=== PATIENT | male | born 1970 | race Caucasian/White ===

== ENCOUNTER 2020-12-13 14:04 | Emergency (ER) | payer OTHER, SELFPAY ==
--- NOTE | ~2020-12-13 | XR_ITS ---
EXAMINATION: XR hand LT min 3V INDICATION: Left hand pain, nail through hand TECHNIQUE: Four views of the right hand are obtained. COMPARISON: None available FINDINGS: There is a nail in the soft tissues of the hand medial to the fifth metacarpal. Soft tissue swelling surrounds the nail. The osseous structures are intact. Bone alignment is normal. 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 IMPRESSION: 1. Nail in the soft tissues of the hand medial to the fifth metacarpal without associated osseous abn ormality. Reviewed, dictated and finalized at location A. IMPRESSION: 1. Nail in the soft tissues of the hand medial to the fifth metacarpal without associated osseous abnormality.
[2020-12-13 14:20] VITALS: BP 141/95; PULSE 87; RESP 18; TEMP 37.1; O2SAT 99
--- NOTE | 2020-12-13 15:41 | ED.WOUNDLAC ---
HPI - Wound/Laceration General Chief Complaint: Wound/Laceration Stated Complaint: nail to hand Time Seen by Provider: 12/13/20 15:14 Source: patient Mode of arrival: ambulatory Limitations: no limitations History of Present Illness HPI narrative: This is a 50-year-old male that presents emergency department for nail stuck in his left hand. Reports he accidentally shot himself in the hand with a nail gun. He is unsure if he is up-to-date on tetanus. Denies decreased range of motion or numbness. Related Data Allergies Allergy/AdvReac Type Severity Reaction Status Date / Time No Known Allergies Allergy Verified 12/13/20 14:34 Review of Systems Review of Systems: CONSTITUTIONAL: Denies fever SKIN: Reports foreign body hand MUSCULOSKELETAL: Denies joint pain, or myalgia. NEUROLOGIC: Denies numbness All systems reviewed & are unremarkable except as noted in HPI and below PMFSH Past Medical History Medical History (Updated 12/13/20 @ 16:19 by Irene Garcia PA-C) No active medical problems Social History Social History (Updated 12/13/20 @ 15:42 by Irene Garcia PA-C) Smoking status: Never smoker Exam Narrative: GENERAL: Well-appearing, well-nourished, and in no acute distress. HEAD: Normocephalic, atraumatic. EYES: EOMI. EXTREMITIES: Normal range of motion. No edema. Left hand with nail imbedded in the soft tissue just lateral to the 5th metacarpal. Normal radial pulses. Normal sensation SKIN: Warm, dry, no rash. NEURO: No focal deficits. Alert and oriented x3. PSYCH: Normal mood and affect Course Vital Signs Vital signs: Vital Signs Temperature 98.7 F 12/13/20 14:20 Pulse Rate 87 12/13/20 14:20 Respiratory Rate 18 12/13/20 14:20 Blood Pressure 141/95 H 12/13/20 14:20 Pulse Oximetry 99 12/13/20 14:20 Temperature 98.7 F 12/13/20 14:20 Pulse Rate 87 12/13/20 14:20 Respiratory Rate 18 12/13/20 14:20 Blood Pressure 141/95 H 12/13/20 14:20 Pulse Oximetry 99 12/13/20 14:20 Procedures Foreign Body Removal Foreign Body #1: Foreign Body Removal Date: 12/13/20 Foreign Body Removal Time: 16:15 Site: hand Description of foreign body: other (Nail) Sedation/Analgesia: other (1% lidocaine with epi) Technique: manual removal and incision made to facilitate removal Confirmed by:: direct visualization and radiograph Complications: none Post-procedure exam: awake, alert Neurovascular: normal distal pulse, normal capillary fill, distal light touch sensation intact and distal motor function normal MDM - Wound/Laceration MDM Narrative Medical decision making narrative: Patient presents emergency department after an injury with a nail gun with nail stuck in the soft tissue of the left hand. Left hand x-ray is without acute osseous abnormalities. Nail was successfully removed. He was updated on tetanus. Wound was thoroughly irrigated. Patient will be started on oral antibiotics. He was instructed on wound care. He is to follow-up with primary care doctor. He was given warnings to return to the ER Imaging Data Radiologist's impression: ITS Impressions Hand X-Ray 12/13/20 15:09 IMPRESSION: 1. Nail in the soft tissues of the hand medial to the fifth metacarpal without associated osseous abnormality. Critical Care Time Critical Care Time Critical Care Time: No Discharge Plan Discharge Clinical Impression: Foreign body hand Qualifiers: Encounter type: initial encounter Laterality: left Qualified Code(s): S60.552A - Superficial foreign body of left hand, initial encounter Patient Disposition: Home, Self-Care Condition: Stable Instructions: Antibiotic Form, Soft Tissue Foreign Body (ED) Additional Instructions: Return to the emergency department if you experience fever, redness or swelling of your wound, abnormal drainage from your wound, or any other symptoms that are concerning to you.
[2020-12-13 16:35] VITALS: BP 135/76; PULSE 88; RESP 18; O2SAT 99
== END 2020-12-13 16:35 | disposition home or self-care (01) ==
PROVIDERS: Emergency Provider Emergency Medicine
DX: S60.552A Superficial foreign body of left hand, initial encounter (principal); W29.4XXA Contact with nail gun, initial encounter
CPT/HCPCS: 10120; 73130; 99283